=== PATIENT | female | born 1955 | race Caucasian/White ===

== ENCOUNTER 2017-12-06 05:58 | Day surgery (SDC) | payer OTHER ==
[2017-12-05 11:40] VITALS: BMI 33.7
[2017-12-06] MEDS ORDERED: Midazolam HCl 2 mg/2 ml Vial ONE ×2 (06:31→06:58)
[2017-12-06] MEDS ORDERED: Fentanyl 100 MCG/2 ML VIAL ONE ×2 (06:31→09:03)
[2017-12-06] MEDS ORDERED: Bupivacaine/Epinephrine 0.25% 30 ML VIAL ONE ×2 (06:42→09:07)
[2017-12-06] MEDS ORDERED: CEFAZOLIN/Water 2 GM/20 ML SYRINGE ONE (06:57)
[2017-12-06] MEDS ORDERED: Ketorolac Tromethamine 30 MG/ML VIAL ONE (06:58)
[2017-12-06 07:11] LABS: Hemoglobin 14.1 g/dL (12.0-16.0); Mean Corpuscular HGB CONC 33.8 g/dL (32.0-36.0); Mean Corpuscular Hemoglobin 31.5 pg (27.0-31.0); Mean Corpuscular Volume 93.2 fl (81.0-99.0); Platelet Count 177 thou/uL (130-400); RBC Distribution Width 13.1 % (11.5-14.5); Red Blood Cell (RBC) Count 4.49 mill/uL (4.20-5.40); White Blood Cell (WBC) Count 7.1 thou/uL (4.8-10.8)
[2017-12-06 07:31] LABS: ALT (SGPT) 62 U/L (8-55); AST (SGOT) 29 U/L (5-34); Albumin 4.6 g/dL (3.5-5.0); Alkaline Phosphatase 264 U/L (40-150); Anion Gap 14 mmol/L (10-20); BUN (Urea Nitrogen) 11 mg/dL (9.8-20.1); Bilirubin, Total 0.7 mg/dL (0.2-1.2); Calc. Creatinine Clearance 123 mL/min (70-130); Calcium 9.9 mg/dL (7.8-10.44); Carbon Dioxide 24 mmol/L (22-29); Chloride 101 mmol/L (98-107); Estimated GFR-MDRD 81; Globulin 2.9 g/dL (2.4-3.5); Glucose 95 mg/dL (70-105); Potassium 3.7 mmol/L (3.5-5.1); Protein, Total 7.5 g/dL (6.0-8.3); Sodium 135 mmol/L (136-145)
[2017-12-06] MEDS ORDERED: Iothalamate Meglumine 60% 50 ML VIAL FS ONE (08:05)
[2017-12-06 08:44] LABS: Band 3 % (5-11); Eosinophils 1 % (0-10); Lymphocytes 48 % (21-51); MDiff Complete? YES; Monocytes 8 % (0-10); Neutrophil 38 % (42-75); PLT Morphology Comment Appears Adequate; Reactive Lymphocytes 2 % (0-10)
[2017-12-06] MEDS ORDERED: Non-Formulary Medication 1 EACH PO PRN (09:54)
[2017-12-06] MEDS ORDERED: Promethazine HCl 25 MG/ML VIAL IM/IV PRN (09:54)
[2017-12-06] MEDS ORDERED: Ondansetron HCl/PF 4 MG/2 ML Vial IVP PRN (09:54)
--- NOTE | 2017-12-06 10:03 | RAD ---
CHOLANGIOGRAM IN SURGERY: Date: 12/06/17 HISTORY: Cholecystectomy. COMPARISON: None. FINDINGS: There is dilatation of the common bile duct. There is quick contrast in the duodenum. No distal commo n bile duct stone is appreciated. IMPRESSION: Dilatation of the common duct without a distal filling defect. POS: ANGELA
--- NOTE | 2017-12-06 12:14 | OP ---
DATE OF PROCEDURE: 12/06/2017 PREOPERATIVE DIAGNOSIS: Symptomatic cholelithiasis. POSTOPERATIVE DIAGNOSES: Symptomatic cholelithiasis with dilated cystic duct and common bile duct. PROCEDURE PERFORMED: Laparoscopic cholecystectomy with intraoperative cholangiogram. SURGEON: Porter Aguero M.D. ANESTHESIA: General endotracheal. INDICATIONS: The patient is a 62-year-old white female. She presents with symptoms referable to gal lbladder ultrasound proven cholelithiasis. Preoperative laboratory studies reveal an elevated alkali ne phosphatase level otherwise normal bilirubin and transaminases. I recommend cholangiogram. DESCRIPTION OF OPERATION: Informed consent was obtained. The patient taken to the operating room [facility] general endotracheal anesthesia was obtained with the patient in supine position. Abdomen was pr epped with ChloraPrep, draped in sterile fashion. Local anesthetic was infiltrated. An 11 mm infrau mbilical incision was created through which a Veress needle was passed into the peritoneal cavity and pneumoperitoneum established using carbon dioxide up to a pressure of 15 mmHg. An 11 mm trocar was passed through this same incision. Laparoscopic camera was passed this port. Under direct vision, I placed three additional 5 mm right upper quadrant ports. Attention was turned to the gallbladder. This was grasped and retracted in cephalad direction. There were some fatty adhesions to the gallbla dder. These were taken down using careful electrocautery. Base appendix was identified, grasped, an d retracted inferiorly. Careful dissection was carried out the apex of the gallbladder to identify t he cystic duct and cystic artery. The artery was quickly divided between clips leaving two on the si de to remain within the abdomen. The duct was dissected circumferentially and noted to be markedly d ilated. The duct was clipped proximally and a ductotomy was created through which a cholangiogram wa s performed. This revealed essentially normal ductal anatomy except that the cystic duct and the com mon duct were both quite dilated. There was easy quick emptying into the duodenum. There was no rosetta dence of filling defects in any of the ductal systems. The duct was removed and the distal aspect of the duct was clipped and a PDS Endoloop was placed as w ell due to the dilatation. The gallbladder was then dissected out of the gallbladder fossa using vilma ctrocautery and removed through the umbilical port site. Fascia was closed at the umbilicus with 0 V icryl suture using a GraNee needle. Right upper quadrant was thoroughly irrigated. All irrigant was aspirated. All ports and instruments removed under direct vision. Pneumoperitoneum was carefully e vacuated. Quarter percent Marcaine with epinephrine was infiltrated in each port site and skin edges approximated with 4-0 Monocryl subcuticular suture. Dermabond was placed externally. There were no complications. The patient tolerated the procedure well and was taken to recovery in stable conditi on.
[2017-12-06] MEDS ORDERED: Ondansetron HCl/PF 4 MG/2 ML Vial ONE (13:49)
[2017-12-06] MEDS ORDERED: Lidocaine 1% PF 5 ML VIAL ONE (13:49)
[2017-12-06] MEDS ORDERED: ePHEDrine/0.9% NaCl/PF SYRINGE 50 mg/10 ml ONE (13:49)
[2017-12-06] MEDS ORDERED: PROPOFOL 200 MG/20 ML VIAL ONE (13:49)
[2017-12-06] MEDS ORDERED: Glycopyrrolate 0.2 MG/ML 5 ML SYRINGE ONE (13:49)
[2017-12-06] MEDS ORDERED: Dexamethasone 20 MG/5 ML VIAL ONE (13:49)
--- NOTE | 2017-12-19 22:45 | EKG ---
Test Reason : PREOP Blood Pressure : / mmHG Vent. Rate : 068 BPM Atrial Rate : 068 BPM P-R Int : 178 ms QRS Dur : 102 ms QT Int : 408 ms P-R-T Axes : 064 -44 037 degrees QTc Int : 433 ms Normal sinus rhythm Left axis deviation Abnormal ECG When compared with ECG of 25-FEB-2015 09:37, Nonspecific T wave abnormality has replaced inverted T waves in Inferior leads T wave inversion no longer evident in Anterior leads Confirmed by Ghada JETER ([id number]) on 12/19/2017 10:45:03 PM Referred By: LUISA Confirmed By:Ghada JETER
== END 2017-12-06 12:10 | disposition home or self-care (01) ==
LOC: SDC 05:58
PROVIDERS: ATTEND Specialist
PROC: BF141ZZ Fluoroscopy of Gallbladder, Bile Ducts and Pancreatic Ducts using Low Osmolar Contrast (ICD-10-PCS; principal; 2017-12-06)
PROC: 0FT44ZZ Resection of Gallbladder, Percutaneous Endoscopic Approach (ICD-10-PCS; principal; 2017-12-06)
DX: K80.10 Calculus of gallbladder with chronic cholecystitis without obstruction (principal); I10 Essential (primary) hypertension; R56.9 Unspecified convulsions; Z88.2 Allergy status to sulfonamides; Z88.8 Allergy status to other drugs, medicaments and biological substances; Z91.048 Other nonmedicinal substance allergy status; Z90.49 Acquired absence of other specified parts of digestive tract
CPT/HCPCS: 47532; 80053; 85025; 88304; 93005; 93010; 96374; J0131; J1100; J1885; J2001; J2250; J2405; J2704; J3010; Q9961

== ENCOUNTER 2018-01-02 10:25 | Outpatient (CLI) | payer OTHER | END 2018-01-02 10:26 | disposition home or self-care (01) | LOC: BICMAMMO 10:25 | PROVIDERS: ATTEND Obstetrics & Gynecology | DX: Z12.31 Encounter for screening mammogram for malignant neoplasm of breast (principal); Z80.3 Family history of malignant neoplasm of breast | CPT/HCPCS: 77063; 77067 ==

== ENCOUNTER 2019-09-01 22:18 | Emergency (ER) | payer OTHER ==
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
[2019-09-01 22:50] LABS: #Basophils 0.1 thou/uL (0.0-0.2); #Eosinphils 0.1 thou/uL (0.0-0.7); #Lymphocytes 3.1 thou/uL (1.20-3.40); #Monocytes 0.9 thou/uL (0.11-0.59); #Neutrophils 4.5 thou/uL (1.40-6.50); %Basophils 1.1 % (0.0-1.0); %Monocytes 10.2 % (0.0-10.0); %Neutrophils 51.8 % (42.0-75.0); Hemoglobin 14.3 g/dL (12.0-16.0); Mean Corpuscular HGB CONC 34.5 g/dL (32.0-36.0); Mean Corpuscular Hemoglobin 32.4 pg (27.0-31.0); Mean Corpuscular Volume 93.8 fL (78.0-98.0); Mean Platelet Volume 7.9 fL (7.4-10.4); Platelet Count 210 thou/uL (130-400); RBC Distribution Width 12.3 % (11.5-14.5); White Blood Cell (WBC) Count 8.7 thou/uL (4.8-10.8)
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
[2019-09-01 23:02] LABS: ALT (SGPT) 12 U/L (8-55); AST (SGOT) 16 U/L (5-34); Albumin 4.5 g/dL (3.4-4.8); Alkaline Phosphatase 59 U/L (40-110); Anion Gap 13 mmol/L (10-20); BUN (Urea Nitrogen) 18 mg/dL (9.8-20.1); Bilirubin, Total 0.4 mg/dL (0.2-1.2); Calc. Creatinine Clearance 0 mL/min (70-130); Calcium 10.1 mg/dL (7.8-10.44); Carbon Dioxide 27 mmol/L (23-31); Chloride 106 mmol/L (98-107); Estimated GFR-MDRD 76; Globulin 2.8 g/dL (2.4-3.5); Glucose 104 mg/dL (80-115); Protein, Total 7.3 g/dL (6.0-8.3); Sodium 142 mmol/L (136-145)
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
== END 2019-09-02 01:01 | disposition home or self-care (01) ==
LOC: ERS 22:18
DX: M54.2 Cervicalgia (principal); I10 Essential (primary) hypertension; V40.5XXA Car driver injured in collision with pedestrian or animal in traffic accident, initial encounter
CPT/HCPCS: 36415; 70450; 71045; 71260; 72125; 74177; 80053; 83605; 85025; 93005; 96360

== ENCOUNTER 2020-06-11 06:35 | Inpatient (IN) | payer OTHER ==
[2020-06-11] MEDS ORDERED: Ondansetron PF 4 MG/2 ML Vial ONE (07:00)
[2020-06-11 07:19] LABS: #Basophils 0.1 thou/uL (0.0-0.2); #Lymphocytes 1.9 thou/uL (1.20-3.40); #Monocytes 0.9 thou/uL (0.11-0.59); #Neutrophils 7.2 thou/uL (1.40-6.50); %Basophils 0.6 % (0.0-1.0); %Eosinophils 0.4 % (0.0-10.0); %Lymphocytes 18.6 % (21.0-51.0); %Monocytes 9.2 % (0.0-10.0); %Neutrophils 71.2 % (42.0-75.0); Hemoglobin 11.5 g/dL (12.0-16.0); Mean Corpuscular HGB CONC 34.2 g/dL (32.0-36.0); Mean Corpuscular Hemoglobin 30.8 pg (27.0-31.0); Mean Corpuscular Volume 90.2 fL (78.0-98.0); Mean Platelet Volume 7.6 fL (7.4-10.4); Platelet Count 300 thou/uL (130-400); RBC Distribution Width 12.9 % (11.5-14.5); Red Blood Cell (RBC) Count 3.74 mill/uL (4.20-5.40); White Blood Cell (WBC) Count 10.1 thou/uL (4.8-10.8)
[2020-06-11 07:42] LABS: ALT (SGPT) 8 U/L (8-55); AST (SGOT) 12 U/L (5-34); Albumin 3.7 g/dL (3.4-4.8); Alkaline Phosphatase 58 U/L (40-110); Anion Gap 14 mmol/L (10-20); BUN (Urea Nitrogen) 13 mg/dL (9.8-20.1); Bilirubin, Total 0.5 mg/dL (0.2-1.2); Calc. Creatinine Clearance 0 mL/min (70-130); Calcium 9.1 mg/dL (7.8-10.44); Carbon Dioxide 25 mmol/L (23-31); Chloride 82 mmol/L (98-107); Estimated GFR-MDRD Greater than 90; Globulin 2.3 g/dL (2.4-3.5); Glucose 117 mg/dL (80-115)
[2020-06-11 07:49] LABS: Sodium 117 mmol/L (136-145)
[2020-06-11 08:03] LABS: CKMB 2.6 ng/mL (0-6.6)
[2020-06-11 09:14] LABS: Bilirubin Negative (Negative); Blood, Urine Negative (Negative); Clarity Clear (Clear); Glucose, Urine (Dipstick) Normal (Negative); Ketone, Urine 40 mg/dL (Negative); Leukocyte Negative Leu/uL (Negative); Nitrite Negative (Negative); Protein, Urine (Dipstick) Negative (Neg-Trace); Specific Gravity, Urine 1.007 (1.002-1.036); Urobilinogen Normal mg/dL (Less than 2)
[2020-06-11] MEDS ORDERED: Acetaminophen 325 MG TAB PO PRN (10:30)
[2020-06-11 10:40] VITALS: BMI 28.8
[2020-06-11 11:17] LABS: Anion Gap 12 mmol/L (10-20); BUN (Urea Nitrogen) 10 mg/dL (9.8-20.1); Calc. Creatinine Clearance 129 mL/min (70-130); Carbon Dioxide 28 mmol/L (23-31); Chloride 87 mmol/L (98-107); Estimated GFR-MDRD Greater than 90; Glucose 92 mg/dL (80-115); Potassium 4.1 mmol/L (3.5-5.1); Sodium 123 mmol/L (136-145)
[2020-06-11 11:23] LABS: Troponin I 0.016 ng/mL (< 0.028)
[2020-06-11] MEDS ORDERED: Ondansetron PF 4 MG/2 ML Vial IVP PRN (12:13)
--- NOTE | 2020-06-11 12:37 | HP ---
PRIMARY CARE PROVIDER: Triston Etienne MD CHIEF COMPLAINT: Generalized weakness. HISTORY OF PRESENT ILLNESS: Ms. Bird is a pleasant 64-year-old lady who was seen at [facility] on 06/11/2020. 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 She was prescribed p.r.n. Rye at that time. She reports that she took Rye yesterday afternoon with food as well as yesterday evening with food. She did not have any side effects. She woke up around 1:00 a.m. today and took some Rye without food. She started having vomiting. She reports vomiting multiple times and denies any blood in the vomitus. She fevers. She reports taking another dose of Rye this morning and continued to have vomiting. She therefore presented to the emergency room. She reports generalized weakness. She denies any chest pain. She denies any abdominal pain. She denies any diarrhea. In the emergency room, she was found to be hyponatremic and was referred to Hospitalist Service for admission. REVIEW OF SYSTEMS: All systems were reviewed and found to be negative except for the pertinent positives mentioned above. PAST MEDICAL HISTORY: 1. Hypertension. 2. Seizures. SURGICAL HISTORY: 1. Cholecystectomy. 2. Appendectomy. 3. Tubal ligation. 4. Neck cyst removal. 5. Mandibular surgery. SOCIAL HISTORY: The patient denies tobacco use, alcohol use, or recreational drug use. FAMILY HISTORY: Breast cancer in her mother and prostate cancer in her father. ALLERGIES: ADHESIVE, PHENYTOIN, AND SULFA. CURRENT MEDICATIONS: 1. Divalproex 500 mg 3 times a day. 2. Synthroid 125 mcg daily. 3. Doxycycline 100 mg daily. 4. Irbesartan 75 mg daily. 5. Rye p.r.n. PHYSICAL EXAMINATION: GENERAL: On examination, Ms. Bird is awake and alert, not in acute distress. VITAL SIGNS: Blood pressure is 130/76, pulse 76, respiratory rate 18, and oxygen saturation 99% on room air. She is afebrile. EYES: No scleral icterus. No conjunctival pallor. ENT: Moist mucosal membranes. No oropharyngeal erythema or exudates. NECK: Supple, nontender. Trachea is midline. RESPIRATORY: Accessory muscles of breathing are not active. Chest wall movements are symmetric bilaterally. Lungs are clear to auscultation without wheeze, rhonchi, or crepitations. CARDIOVASCULAR: S1 and S2 are heard, regular. Peripheral pulses palpable. ABDOMEN: Soft, nontender. Bowel sounds are heard. NEUROLOGIC: Cranial nerves 2 through 12 are intact. Deep tendon reflexes 2+. She has tremor in her hands, more pronounced on the left. MUSCULOSKELETAL: Power is 5/5 in all 4 extremities. SKIN: No rashes. LYMPHATIC: No cervical lymphadenopathy. PSYCHIATRIC: Normal mood, normal affect. The patient is oriented to person, place, and time. LABORATORY DATA: Ms. Bird's labs and investigations were reviewed. Electrocardiogram showed normal sinus rhythm, no ST changes to suggest an acute coronary syndrome. She has normal white count, normocytic anemia with hemoglobin 11.5, normal platelet count. Decreased sodium of 117, potassium 4.0, normal anion gap, and creatinine 0.61. Unremarkable LFTs. Troponin-I is in the indeterminate range at 0.029. ASSESSMENT AND PLAN: Ms. Bird is a pleasant 64-year-old lady who was seen at [facility] on 06/11/2020. Her problem list includes: 1. Hyponatremia: Etiology is unclear, this is in the context of recurrent vomiting that started overnight. I will check her serum osmolality. I will consult Nephrology Service for opinion and help with management. 2. Nausea and vomiting: Most likely secondary to medication use. I will start her on p.r.n. Zofran. 3. Elevated troponin: The patient denies any chest pain. Troponin is mildly elevated and in the indeterminate range, likely due to demand ischemia. We will recheck troponin. We will monitor on telemetry for now. 4. Hypertension: Resume irbesartan. Monitor vital signs and titrate antihypertensives as needed. 5. Hypothyroidism: Resume Synthroid. Many thanks for allowing me to participate in your patient's care. Please feel free to contact me with any questions or concerns. ESTIMATED LENGTH OF STAY IN THE HOSPITAL: Greater than 2 midnights. LEVEL OF RISK: Moderate. LEVEL OF COMPLEXITY: Moderate. Job ID: [id number]
--- NOTE | 2020-06-11 12:57 | CON ---
DATE OF CONSULTATION: 06/11/2020 SERVICE: Nephrology. REASON FOR CONSULTATION: Hyponatremia. REQUESTING PHYSICIAN: Kyle Zapata MD CHIEF COMPLAINT: Nausea, vomiting, and weakness. HISTORY OF PRESENT ILLNESS: A 64-year-old female with known history of hypertension, who recently had mandibular debridement for osteomyelitis 3 days ago, presenting to the hospital due to intractable nausea and vomiting associated with generalized weakness. The patient had a mandibular debridement for osteomyelitis on 06/08/2020. She was put on a soft liquid diet and was taking mostly fluids in the last couple of days due to poor appetite. She also reported decreased oral intake due to jaw pain several days prior to surgery. She was taking Advil, but with worsening of pain, she started taking hydrocodone and acetaminophen, following which she developed nausea and vomiting. She reportedly had about 5 episodes of emesis, which was nonbilious and nonbloody. There was no associated melena, hematochezia, or hematemesis. She, however, admitted to generalized weakness as well as dizziness. There was a questionable episode of some slight confusion and some disorientation, which has resolved after treatment in the emergency room. There was no associated cough, fever, chills, rigors, hematemesis, hematuria, dysuria, abdominal pain, headache, or focal weakness. Review of medical records showed the patient had an episode of hyponatremia in 2014, which was then thought to be related to hydrochlorothiazide and was subsequently taking off hydrochlorothiazide. Medical records showed normal sodium of 142 in 08/2019, but the patient also had a sodium of 131 on 05/20/2020. She also had thyroidectomy in 02/2020 for a thyroid nodule. She reported that she was taking 150 mcg of Synthroid, but that was recently decreased to 125 a few days ago. In the emergency room, the patient reportedly had soft blood pressure initially, but subsequent blood pressures were elevated above 140s. The patient was thought to have dehydration on presentation. Initial labs showed sodium of 117 with stable creatinine, hence was treated with a liter of normal saline, following which the patient reports improvement in general condition. Nephrology was consulted due to hyponatremia. PAST MEDICAL HISTORY: 1. Seizure disorder with remote episodes of seizure activity. 2. Hypertension. 3. Thyroid nodule. PAST SURGICAL HISTORY: 1. Recent mandibular debridement. 2. Thyroidectomy. 3. Cholecystectomy. 4. Tubal ligation. FAMILY HISTORY: Reviewed, but noncontributory. SOCIAL HISTORY: The patient lives with spouse. Denied alcohol, recreational drug, or smoking history. ALLERGIES: 1. ADHESIVE TAPE. 2. DILANTIN. 3. PHENYTOIN. 4. SULFA. CURRENT HOME MEDICATIONS: 1. Divalproex 500 mg t.i.d. 2. Synthroid 125 mcg p.o. daily. 3. Doxycycline 100 mg p.o. b.i.d. 4. Irbesartan 75 mg daily. 5. Hydrocodone and acetaminophen 7.5 mg/325 every 6 hours p.r.n. 6. Advil p.r.n. REVIEW OF SYSTEMS: Twelve-point review of system performed was negative other than pertinent positives and negatives included in the history of present illness. PHYSICAL EXAMINATION: VITAL SIGNS: Current vitals showed temperature 97.9, pulse 81, respiratory rate 14, SpO2 of 100 on room air, and blood pressure is 131/62. GENERAL: Female, in no obvious distress, fatigued. Afebrile and anicteric. HEENT: Normocephalic and atraumatic. Oral mucosa is moist. NECK: Supple with no obvious JVD. CARDIOVASCULAR: Regular rhythm and rate with normal heart sounds 1 and 2. RESPIRATORY: Good air entry bilaterally with a few transmitted breath sounds, but no obvious crackle or rhonchi or use of accessory muscles. GI: Full, soft, nontender, and nondistended with normal bowel sounds. EXTREMITIES: Grossly normal looking and atraumatic with no obvious edema or erythema. The patient moves all extremities. Distal pulses are palpable. AWNING ASSEMBLER: Conscious and alert, oriented x3 with appropriate mental status. Cranial nerves 2 through 12 are grossly intact. The patient moves all extremities. PSYCHIATRIC: Normal affect. DIAGNOSTIC DATA: CBC showed WBC count of 10.1, hemoglobin of 11.5, MCV of 90.2, and platelet of 300. Chemistry showed sodium 117, potassium 4.0, chloride 82, CO2 of 25, BUN 13, creatinine 0.61, glucose 117, and calcium 9.1. Total bilirubin 0.5, AST 12, ALT 8, alkaline phosphatase 50, total protein 6.0, and albumin 3.7. Initial cardiac markers showed CK-MB 2.6 and troponin 0.029. Review of medical records showed the patient had normal sodium of 142 in 08/2019. She also had an episode of hyponatremia with sodium of 120 in 02/2015, which improved to 135 on 02/27/2015. ASSESSMENT: 1. Hyponatremia: This is severe with sodium of 117. The patient is currently neurologically stable. This seems to be multifactorial from both volume depletion with correction with hypotonic solution as well as the baseline syndrome of inappropriate antidiuretic hormone with acute excerbation due to recent surgery and nausea. Intractable nausea is avid stimulator of ADH secretion. The patient did receive normal saline 1 L during the ER visit. 2. Presumed syndrome of inappropriate antidiuretic hormone.Most likely due to Depakorte therapy 3. Poor solute intake. 4. Recent mandibular surgery, on antibiotics. 5. Thyroid surgery for thyroid nodule. 6. Hypertension, on treatment. PLAN: 1. We will get stat BMP to ascertain current level of sodium given a prior treatment with 1 L normal saline in the emergency room. 2. We will also get a urinalysis as well as urine and plasma osmolality. 3. We will also get TSH to ascertain state of thyroid replacement. 4. We will avoid aggressive correction of sodium in this patient as she is asymptomatic. 5. We will encourage liberal solute intake as much as possible. Serum osmolality was 248 while urine osmolality was 231, consistent with syndrome of inappropriate ADH secretion. Urine sodium also was noted to be high at 51. Repeat BMP showed sodium of 123. Improvement with sodium chloride is consistent with some degree of volume depletion. We will start fluid restriction. We will continue liberal solute intake. We will also follow BMP serially to monitor correction of the sodium. Many thanks for involving us in the care of this patient. We will follow along with you. Job ID: [id number] [facility]
[2020-06-11 14:12] LABS: Troponin I Less than 0.010 ng/mL (< 0.028)
[2020-06-11 18:51] LABS: Anion Gap 14 mmol/L (10-20); BUN (Urea Nitrogen) 9 mg/dL (9.8-20.1); Calc. Creatinine Clearance 121 mL/min (70-130); Calcium 9.4 mg/dL (7.8-10.44); Carbon Dioxide 26 mmol/L (23-31); Chloride 95 mmol/L (98-107); Estimated GFR-MDRD Greater than 90; Glucose 106 mg/dL (80-115); Sodium 131 mmol/L (136-145)
[2020-06-11 19:49] LABS: SARS-CoV-2 MS2 Positive; SARS-CoV-2 N Gene Negative; SARS-CoV-2 S Gene Negative; SARS-CoV-2 by NAA Not Detected (NotDetected); SARS-CoV-2 orf1ab Negative
[2020-06-11] MEDS: Doxycycline 100 MG CAP PO SCH (21:35)
[2020-06-11] MEDS: Divalproex Sodium DR 500 MG TAB PO SCH ×2 (21:36→22:02)
[2020-06-11] MEDS ORDERED: Divalproex Sodium 125 mg Sprinkle Capsule PO SCH (22:00)
[2020-06-11] MEDS: Dextrose 5% in Water 1,000 ML IV SCH (22:15)
[2020-06-11] MEDS: Acetaminophen 325 MG TAB PO PRN (22:24)
[2020-06-12] MEDS: Acetaminophen 325 MG TAB PO PRN ×4 (02:20→23:02)
[2020-06-12 04:41] LABS: #Basophils 0.1 thou/uL (0.0-0.2); #Eosinphils 0.1 thou/uL (0.0-0.7); #Lymphocytes 3.2 thou/uL (1.20-3.40); #Neutrophils 3.6 thou/uL (1.40-6.50); %Eosinophils 0.7 % (0.0-10.0); %Lymphocytes 40.7 % (21.0-51.0); %Neutrophils 45.6 % (42.0-75.0); Hemoglobin 11.1 g/dL (12.0-16.0); Mean Corpuscular HGB CONC 33.4 g/dL (32.0-36.0); Mean Corpuscular Hemoglobin 30.5 pg (27.0-31.0); Mean Corpuscular Volume 91.3 fL (78.0-98.0); Mean Platelet Volume 7.9 fL (7.4-10.4); Platelet Count 284 thou/uL (130-400); RBC Distribution Width 13.3 % (11.5-14.5); Red Blood Cell (RBC) Count 3.64 mill/uL (4.20-5.40); White Blood Cell (WBC) Count 7.9 thou/uL (4.8-10.8)
[2020-06-12 05:26] LABS: Anion Gap 11 mmol/L (10-20); BUN (Urea Nitrogen) 8 mg/dL (9.8-20.1); Calc. Creatinine Clearance 127 mL/min (70-130); Calcium 8.8 mg/dL (7.8-10.44); Carbon Dioxide 26 mmol/L (23-31); Chloride 96 mmol/L (98-107); Estimated GFR-MDRD Greater than 90; Glucose 100 mg/dL (80-115); Potassium 3.9 mmol/L (3.5-5.1); Sodium 129 mmol/L (136-145)
[2020-06-12] MEDS: Levothyroxine Sodium 125 MCG TAB PO SCH (05:51)
[2020-06-12] MEDS: Dextrose 5% in Water 1,000 ML IV SCH ×3 (08:37→17:29)
[2020-06-12] MEDS: Divalproex Sodium 125 mg Sprinkle Capsule PO SCH ×2 (08:38→20:18)
[2020-06-12] MEDS: Losartan 25 MG TAB PO SCH (08:38)
[2020-06-12] MEDS: Doxycycline 100 MG CAP PO SCH ×2 (08:38→20:19)
[2020-06-12] MEDS: Enoxaparin Sodium 40 MG/0.4 ML SYRINGE SC SCH (08:38)
[2020-06-12 10:24] LABS: Anion Gap 12 mmol/L (10-20); BUN (Urea Nitrogen) 6 mg/dL (9.8-20.1); Calc. Creatinine Clearance 125 mL/min (70-130); Calcium 8.8 mg/dL (7.8-10.44); Carbon Dioxide 27 mmol/L (23-31); Chloride 95 mmol/L (98-107); Estimated GFR-MDRD Greater than 90; Glucose 109 mg/dL (80-115); Potassium 3.6 mmol/L (3.5-5.1); Sodium 130 mmol/L (136-145)
--- NOTE | 2020-06-12 12:00 | PDOC.NEPPN ---
- Subjective Encounter Date: 06/12/20 Subjective: Seen in follow up for hyponatremia. Reports feeling better. Nausea and vomiting have subsided and patient is tolerating oral intake. No Fever. - Objective Vital Signs & Weight: Vital Signs (12 hours) Temp Pulse Resp BP Pulse Ox 06/12/20 08:00 100 06/12/20 07:20 98.0 F 72 16 131/61 100 06/12/20 04:00 97.8 F 75 18 125/60 98 06/12/20 00:00 78 18 118/56 L 98 Weight Weight 179 lb I&O: 06/11/20 06/12/20 06/13/20 06:59 06:59 06:59 Intake Total 1100 Balance 1100 Result Diagrams: 06/12/20 04:23 06/12/20 09:41 Nephrology ROS - Medication Medications: Active Medications Generic Name Dose Route Start Last Admin Trade Name Freq PRN Reason Stop Dose Admin Acetaminophen 650 mg 06/11/20 12:13 06/12/20 10:19 Acetaminophen 325 Mg Tab PO 650 mg Q4H PRN Administration Headache/Fever/Mild Pain (1-3) Divalproex Sodium 500 mg 06/12/20 09:00 06/12/20 08:38 Divalproex Sodium 125 Mg Sprinkle Capsule PO 500 mg BID ANDREW Administration Doxycycline Hyclate 100 mg 06/11/20 21:00 06/12/20 08:38 Doxycycline 100 Mg Cap PO 100 mg BID ANDREW Administration Enoxaparin Sodium 40 mg 06/12/20 09:00 06/12/20 08:38 Enoxaparin Sodium 40 Mg/0.4 Ml Syringe SC 40 mg 0900 ANDREW Administration Dextrose/Water 1,000 mls @ 100 mls/hr 06/11/20 21:15 06/12/20 08:37 D5w IV 1,000 mls .Q10H ANDREW Administration Levothyroxine Sodium 125 mcg 06/12/20 06:00 06/12/20 05:51 Levothyroxine Sodium 125 Mcg Tab PO 125 mcg 0600 ANDREW Administration Losartan Potassium 25 mg 06/12/20 09:00 06/12/20 08:38 Losartan 25 Mg Tab PO 25 mg DAILY ANDREW Administration - Exam General Appearance: awake alert Eye: anicteric sclera ENT: moist mucosa Neck: supple, symmetric, no JVD Respiratory: no wheezes, no rales, no ronchi, normal chest expansion Cardiovascular: RRR Gastrointestinal: soft, non-tender, non-distended, normal bowel sounds Extremities: no edema Neurological: CN's grossly intact PSYCH: A&O x 3 Nephrology Results - Labs Result Diagrams: 06/12/20 04:23 06/12/20 09:41 Lab results: WBC 7.9 thou/uL (4.8-10.8) 06/12/20 04:23 Hgb 11.1 g/dL (12.0-16.0) L 06/12/20 04:23 Hct 33.2 % (36.0-47.0) L 06/12/20 04:23 MCV 91.3 fL (78.0-98.0) 06/12/20 04:23 Plt Count 284 thou/uL (130-400) 06/12/20 04:23 Neutrophils % 45.6 % (42.0-75.0) 06/12/20 04:23 Sodium 130 mmol/L (136-145) L 06/12/20 09:41 Potassium 3.6 mmol/L (3.5-5.1) 06/12/20 09:41 Chloride 95 mmol/L (98-107) L 06/12/20 09:41 Carbon Dioxide 27 mmol/L (23-31) 06/12/20 09:41 BUN 6 mg/dL (9.8-20.1) L 06/12/20 09:41 Creatinine 0.60 mg/dL (0.6-1.1) 06/12/20 09:41 Glucose 109 mg/dL (80-115) 06/12/20 09:41 Lactic Acid 0.9 mmol/L (0.5-2.2) 06/11/20 07:39 Calcium 8.8 mg/dL (7.8-10.44) 06/12/20 09:41 Total Bilirubin 0.5 mg/dL (0.2-1.2) 06/11/20 07:06 AST 12 U/L (5-34) 06/11/20 07:06 ALT 8 U/L (8-55) 06/11/20 07:06 Alkaline Phosphatase 58 U/L (40-110) 06/11/20 07:06 CK-MB (CK-2) 2.6 ng/mL (0-6.6) 06/11/20 07:06 Troponin I Less than 0.010 ng/mL (< 0.028) 06/11/20 13:29 Serum Total Protein 6.0 g/dL (6.0-8.3) 06/11/20 07:06 Albumin 3.7 g/dL (3.4-4.8) 06/11/20 07:06 Urine Ketones 40 mg/dL (Negative) A 06/11/20 09:00 Urine Blood Negative (Negative) 06/11/20 09:00 Urine Nitrite Negative (Negative) 06/11/20 09:00 Ur Leukocyte Esterase Negative Ankita/uL (Negative) 06/11/20 09:00 Sodium 130 mmol/L (136-145) L 06/12/20 09:41 Potassium 3.6 mmol/L (3.5-5.1) 06/12/20 09:41 Chloride 95 mmol/L (98-107) L 06/12/20 09:41 Carbon Dioxide 27 mmol/L (23-31) 06/12/20 09:41 Anion Gap 12 mmol/L (-20) 06/12/20 09:41 BUN 6 mg/dL (9.8-20.1) L 06/12/20 09:41 Creatinine 0.60 mg/dL (0.6-1.1) 06/12/20 09:41 Glucose 109 mg/dL (80-115) 06/12/20 09:41 Calcium 8.8 mg/dL (7.8-10.44) 06/12/20 09:41 Albumin 3.7 g/dL (3.4-4.8) 06/11/20 07:06 Nephrology AP PN - Plan Hyponatremia: Multifactorial from both volume depletion with correction with hypotonic fluid superimposed on baseline syndrome of inappropriate antidiuretic hormone with acute excerbation due to recent surgery and nausea.Sodium level went up to 131 after normal saline and increased oral solute intake and resolution of nausea. This is rather too fast and dextrose infusion was started. Syndrome of inappropriate antidiuretic hormone.Most likely due to Depakorte therapy Recent mandibular surgery, on antibiotics. Thyroid surgery for thyroid nodule. Hypertension, on treatment. PLAN. Increase dextrose infusion rate. Dc fluid restriction. Oral intake as tolerated. Follow BMP.
--- NOTE | 2020-06-12 16:27 | PDOC.HOSPP ---
- Subjective Encounter Date: 06/12/20 Encounter Time: 10:30 Subjective: Patient seen for follow-up regarding hyponatremia. Reports feeling better. - Objective Vital Signs & Weight: Vital Signs (12 hours) Temp Pulse Resp BP Pulse Ox 06/12/20 12:05 98.4 F 19 109/55 L 98 06/12/20 08:00 100 06/12/20 07:20 98.0 F 72 16 131/61 100 Weight Admit Weight 179 lb Weight 179 lb I&O: 06/11/20 06/12/20 06/13/20 06:59 06:59 06:59 Intake Total 1100 Balance 1100 Result Diagrams: 06/12/20 04:23 06/12/20 09:41 Additional Labs: I reviewed patient's labs and MAR EKG Reviewed by me: Yes (Telemetry: Normal sinus rhythm) Hospitalist ROS - Review of Systems Cardiovascular: denies: chest pain, palpitations, orthopnea, paroxysmal noc. dyspnea, edema, light headedness Gastrointestinal: denies: nausea, vomiting, abdominal pain, diarrhea, constipation, melena, hematochezia - Medication Medications: Active Medications Generic Name Dose Route Start Last Admin Trade Name Freq PRN Reason Stop Dose Admin Acetaminophen 650 mg 06/11/20 12:13 06/12/20 10:19 Acetaminophen 325 Mg Tab PO 650 mg Q4H PRN Administration Headache/Fever/Mild Pain (1-3) Divalproex Sodium 500 mg 06/12/20 09:00 06/12/20 08:38 Divalproex Sodium 125 Mg Sprinkle Capsule PO 500 mg BID ANDREW Administration Doxycycline Hyclate 100 mg 06/11/20 21:00 06/12/20 08:38 Doxycycline 100 Mg Cap PO 100 mg BID ANDREW Administration Enoxaparin Sodium 40 mg 06/12/20 09:00 06/12/20 08:38 Enoxaparin Sodium 40 Mg/0.4 Ml Syringe SC 40 mg 0900 ANDREW Administration Dextrose/Water 1,000 mls @ 150 mls/hr 06/12/20 12:21 06/12/20 15:08 D5w IV 1,000 mls .Q6H40M ANDREW Administration Levothyroxine Sodium 125 mcg 06/12/20 06:00 06/12/20 05:51 Levothyroxine Sodium 125 Mcg Tab PO 125 mcg 0600 ANDREW Administration Losartan Potassium 25 mg 06/12/20 09:00 06/12/20 08:38 Losartan 25 Mg Tab PO 25 mg DAILY ANDREW Administration - Exam General Appearance: awake alert Eye: anicteric sclera ENT: moist mucosa Neck: supple Heart: RRR Respiratory: CTAB Gastrointestinal: soft, non-tender Extremities: no cyanosis Skin: no rashes Psychiatric: normal affect, normal behavior Hosp A/P (1) Hyponatremia Code(s): E87.1 - HYPO-OSMOLALITY AND HYPONATREMIA Status: Acute (2) Seizure disorder Code(s): G40.909 - EPILEPSY, UNSP, NOT INTRACTABLE, WITHOUT STATUS EPILEPTICUS Status: Chronic (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 Appreciate nephrology service input.
[2020-06-12 17:07] LABS: Anion Gap 14 mmol/L (10-20); BUN (Urea Nitrogen) 7 mg/dL (9.8-20.1); Calc. Creatinine Clearance 119 mL/min (70-130); Calcium 8.7 mg/dL (7.8-10.44); Carbon Dioxide 26 mmol/L (23-31); Chloride 96 mmol/L (98-107); Estimated GFR-MDRD Greater than 90; Glucose 78 mg/dL (80-115); Potassium 3.5 mmol/L (3.5-5.1); Sodium 132 mmol/L (136-145)
[2020-06-12 21:41] LABS: Anion Gap 12 mmol/L (10-20); BUN (Urea Nitrogen) 7 mg/dL (9.8-20.1); Calc. Creatinine Clearance 119 mL/min (70-130); Calcium 8.6 mg/dL (7.8-10.44); Carbon Dioxide 25 mmol/L (23-31); Chloride 97 mmol/L (98-107); Estimated GFR-MDRD Greater than 90; Glucose 108 mg/dL (80-115); Sodium 130 mmol/L (136-145)
[2020-06-13] MEDS: Dextrose 5% in Water 1,000 ML IV SCH (00:36)
[2020-06-13 04:16] LABS: #Basophils 0.1 thou/uL (0.0-0.2); #Eosinphils 0.1 thou/uL (0.0-0.7); #Lymphocytes 4.2 thou/uL (1.20-3.40); #Monocytes 0.9 thou/uL (0.11-0.59); #Neutrophils 3.6 thou/uL (1.40-6.50); %Basophils 1.6 % (0.0-1.0); %Eosinophils 1.6 % (0.0-10.0); %Lymphocytes 47.1 % (21.0-51.0); %Monocytes 9.8 % (0.0-10.0); %Neutrophils 39.9 % (42.0-75.0); Hemoglobin 10.8 g/dL (12.0-16.0); Mean Corpuscular HGB CONC 33.2 g/dL (32.0-36.0); Mean Corpuscular Hemoglobin 30.8 pg (27.0-31.0); Mean Corpuscular Volume 92.7 fL (78.0-98.0); Mean Platelet Volume 7.8 fL (7.4-10.4); Platelet Count 270 thou/uL (130-400); RBC Distribution Width 13.5 % (11.5-14.5)
[2020-06-13 04:34] LABS: Anion Gap 13 mmol/L (10-20); BUN (Urea Nitrogen) 5 mg/dL (9.8-20.1); Calc. Creatinine Clearance 134 mL/min (70-130); Calcium 8.4 mg/dL (7.8-10.44); Carbon Dioxide 22 mmol/L (23-31); Chloride 97 mmol/L (98-107); Estimated GFR-MDRD Greater than 90; Glucose 118 mg/dL (80-115); Potassium 4.1 mmol/L (3.5-5.1); Sodium 128 mmol/L (136-145)
[2020-06-13] MEDS: Acetaminophen 325 MG TAB PO PRN ×3 (04:43→14:27)
[2020-06-13] MEDS: Levothyroxine Sodium 125 MCG TAB PO SCH (04:43)
--- NOTE | 2020-06-13 08:18 | PDOC.NEPPN ---
- Subjective Encounter Date: 06/13/20 Encounter Time: 08:16 Subjective: Seen in follow up for hyponatemia. Feeling better. Mausea amnd vomiting have resolved. tolerating oral intake. - Objective Vital Signs & Weight: Vital Signs (12 hours) Temp Pulse Resp BP Pulse Ox 06/13/20 03:00 98.4 F 71 15 139/65 100 Weight Admit Weight 179 lb Weight 179 lb I&O: 06/12/20 06/13/20 06/14/20 06:59 06:59 06:59 Intake Total 1100 2600 Balance 1100 2600 Result Diagrams: 06/13/20 03:54 06/13/20 03:54 Nephrology ROS - Medication Medications: Active Medications Generic Name Dose Route Start Last Admin Trade Name Freq PRN Reason Stop Dose Admin Acetaminophen 650 mg 06/11/20 12:13 06/13/20 04:43 Acetaminophen 325 Mg Tab PO 650 mg Q4H PRN Administration Headache/Fever/Mild Pain (1-3) Divalproex Sodium 500 mg 06/12/20 09:00 06/12/20 20:18 Divalproex Sodium 125 Mg Sprinkle Capsule PO 500 mg BID ANDREW Administration Doxycycline Hyclate 100 mg 06/11/20 21:00 06/12/20 20:19 Doxycycline 100 Mg Cap PO 100 mg BID ANDREW Administration Enoxaparin Sodium 40 mg 06/12/20 09:00 06/12/20 08:38 Enoxaparin Sodium 40 Mg/0.4 Ml Syringe SC 40 mg 0900 ANDREW Administration Levothyroxine Sodium 125 mcg 06/12/20 06:00 06/13/20 04:43 Levothyroxine Sodium 125 Mcg Tab PO 125 mcg 0600 ANDREW Administration Losartan Potassium 25 mg 06/12/20 09:00 06/12/20 08:38 Losartan 25 Mg Tab PO 25 mg DAILY ANDREW Administration - Exam General Appearance: awake alert Eye: anicteric sclera ENT: normocephalic atraumatic, moist mucosa Neck: supple, symmetric, no JVD Respiratory: no wheezes, no rales, no ronchi, normal chest expansion, no tachypnea Cardiovascular: RRR Gastrointestinal: soft, non-tender, non-distended, normal bowel sounds Extremities: no edema Neurological: CN's grossly intact PSYCH: A&O x 3 Nephrology Results - Labs Result Diagrams: 06/13/20 03:54 06/13/20 03:54 Lab results: WBC 9.0 thou/uL (4.8-10.8) 06/13/20 03:54 Hgb 10.8 g/dL (12.0-16.0) L 06/13/20 03:54 Hct 32.4 % (36.0-47.0) L 06/13/20 03:54 MCV 92.7 fL (78.0-98.0) 06/13/20 03:54 Plt Count 270 thou/uL (130-400) 06/13/20 03:54 Neutrophils % 39.9 % (42.0-75.0) L 06/13/20 03:54 Sodium 128 mmol/L (136-145) L 06/13/20 03:54 Potassium 4.1 mmol/L (3.5-5.1) 06/13/20 03:54 Chloride 97 mmol/L (98-107) L 06/13/20 03:54 Carbon Dioxide 22 mmol/L (23-31) L 06/13/20 03:54 BUN 5 mg/dL (9.8-20.1) L 06/13/20 03:54 Creatinine 0.56 mg/dL (0.6-1.1) L 06/13/20 03:54 Glucose 118 mg/dL (80-115) H 06/13/20 03:54 Lactic Acid 0.9 mmol/L (0.5-2.2) 06/11/20 07:39 Calcium 8.4 mg/dL (7.8-10.44) 06/13/20 03:54 Total Bilirubin 0.5 mg/dL (0.2-1.2) 06/11/20 07:06 AST 12 U/L (5-34) 06/11/20 07:06 ALT 8 U/L (8-55) 06/11/20 07:06 Alkaline Phosphatase 58 U/L (40-110) 06/11/20 07:06 CK-MB (CK-2) 2.6 ng/mL (0-6.6) 06/11/20 07:06 Troponin I Less than 0.010 ng/mL (< 0.028) 06/11/20 13:29 B-Natriuretic Peptide 20.9 pg/mL (0-100) 06/12/20 23:22 Serum Total Protein 6.0 g/dL (6.0-8.3) 06/11/20 07:06 Albumin 3.7 g/dL (3.4-4.8) 06/11/20 07:06 Urine Ketones 40 mg/dL (Negative) A 06/11/20 09:00 Urine Blood Negative (Negative) 06/11/20 09:00 Urine Nitrite Negative (Negative) 06/11/20 09:00 Ur Leukocyte Esterase Negative Ankita/uL (Negative) 06/11/20 09:00 Sodium 128 mmol/L (136-145) L 06/13/20 03:54 Potassium 4.1 mmol/L (3.5-5.1) 06/13/20 03:54 Chloride 97 mmol/L (98-107) L 06/13/20 03:54 Carbon Dioxide 22 mmol/L (23-31) L 06/13/20 03:54 Anion Gap 13 mmol/L (-20) 06/13/20 03:54 BUN 5 mg/dL (9.8-20.1) L 06/13/20 03:54 Creatinine 0.56 mg/dL (0.6-1.1) L 06/13/20 03:54 Glucose 118 mg/dL (80-115) H 06/13/20 03:54 Calcium 8.4 mg/dL (7.8-10.44) 06/13/20 03:54 Albumin 3.7 g/dL (3.4-4.8) 06/11/20 07:06 Nephrology AP PN - Plan Hyponatremia: Multifactorial from both volume depletion with correction with hypotonic fluid superimposed on baseline syndrome of inappropriate antidiuretic hormone with acute excerbation due to recent surgery and nausea.Sodium level went up to 131 after normal saline and increased oral solute intake and resolution of nausea. Sodium is down to 128 with D5w. No neurological change. Syndrome of inappropriate antidiuretic hormone.Most likely due to Depakorte therapy Recent mandibular surgery, on antibiotics. Thyroid surgery for thyroid nodule. Hypertension, on treatment. PLAN. DC D5W Oral intake as tolerated. [place] solute intake advised Repeat BMP. can be discharged from nephrology point of view. Follow up in the office on 06/22/2020 at 10.30 am with repeat lab
[2020-06-13] MEDS: Enoxaparin Sodium 40 MG/0.4 ML SYRINGE SC SCH (09:31)
[2020-06-13] MEDS: Divalproex Sodium 125 mg Sprinkle Capsule PO SCH (09:32)
[2020-06-13] MEDS: Doxycycline 100 MG CAP PO SCH (09:32)
[2020-06-13] MEDS: Losartan 25 MG TAB PO SCH (09:32)
[2020-06-13 09:49] VITALS: BP 147/66; TEMP 98.1
[2020-06-13 11:34] LABS: Anion Gap 14 mmol/L (10-20); BUN (Urea Nitrogen) 4 mg/dL (9.8-20.1); Calc. Creatinine Clearance 112 mL/min (70-130); Calcium 9.4 mg/dL (7.8-10.44); Carbon Dioxide 26 mmol/L (23-31); Chloride 96 mmol/L (98-107); Estimated GFR-MDRD 89; Glucose 97 mg/dL (80-115); Potassium 4.1 mmol/L (3.5-5.1); Sodium 132 mmol/L (136-145)
--- NOTE | 2020-06-14 03:25 | DIS ---
DATE OF ADMISSION: 06/11/2020 DATE OF DISCHARGE: 06/13/2020 PRIMARY CARE PROVIDER: Triston Etienne MD DISCHARGE DIAGNOSES: 1. Hyponatremia. 2. Nausea and vomiting. 3. [id number] myocardial infarction type 2. CONDITION OF THE PATIENT ON THE DAY OF DISCHARGE: Stable. I assessed Ms. Bird on the day of discharge. She denies any chest pain or shortness of breath. Vital signs are stable. S1 and S2 are heard, regular. Lungs are clear to auscultation bilaterally. CONSULTATIONS DURING THIS HOSPITALIZATION: Nephrology, Dr. Islas. HOSPITAL COURSE: Ms. Bird is a pleasant 64-year-old lady, who was admitted to [facility] on June 11, 2020, for severe hyponatremia in the context of nausea and vomiting after taking [place] on empty stomach. Her sodium level at the time of admission was 117. She was seen by Nephrology Service. She was treated with intravenous fluids, with improvement in her sodium level. Sodium level on the day of discharge is 132. The patient also improved clinically in terms of nausea, vomiting, and generalized weakness. She is being discharged home in a stable condition. DIET: Regular. ACTIVITY: As tolerated. POST ACUTE CARE FOLLOWUP: With primary care provider in [address] Islas on June 22, 2020 at 10:30 a.m. DISCHARGE MEDICATIONS: No change was made to her pre-admission home medications. Many thanks for allowing me to participate in your patient's care. Please feel free to contact me with any questions or concerns. On the day of discharge, she has sodium 132, potassium 4.1, creatinine 0.67, white count 9000, hemoglobin 10.8, and platelet count 270,000. COVID test was negative during this hospitalization. Job ID: [id number]
== END 2020-06-13 17:59 | disposition home or self-care (01) | DRG 643 ==
LOC: ERS 06:35 → 2NO 10:32
PROVIDERS: ADMIT Internal Medicine; ATTEND Internal Medicine
DX: E22.2 Syndrome of inappropriate secretion of antidiuretic hormone (principal); I21.A1 Myocardial infarction type 2; Z20.828 Contact with and (suspected) exposure to other viral communicable diseases; I10 Essential (primary) hypertension; E89.0 Postprocedural hypothyroidism; E86.9 Volume depletion, unspecified; T42.6X5A Adverse effect of other antiepileptic and sedative-hypnotic drugs, initial encounter; M27.2 Inflammatory conditions of jaws; Z88.2 Allergy status to sulfonamides; Z88.8 Allergy status to other drugs, medicaments and biological substances; Z91.040 Latex allergy status; Z90.49 Acquired absence of other specified parts of digestive tract; Z98.51 Tubal ligation status; Z79.899 Other long term (current) drug therapy; Z79.890 Hormone replacement therapy
CPT/HCPCS: 36415; 80048; 80053; 81003; 82553; 83605; 83880; 83930; 83935; 84300; 84443; 84484; 85025; 87635; 93005; 96361; 96374; J1650; J2405; U0003

== ENCOUNTER → 2020-06-18 | Day surgery (SDC) | payer OTHER ==
[~2020-06-18] MED LIST: Heparin 1,000 UNITS/ML VIAL ONE
--- NOTE | 2020-06-18 12:06 | SPC ---
Ultrasound and Fluoroscopic guided right upper extremity PICC placement HISTORY: Osteomyelitis. Patient needs long-term IV antibiotics FINDINGS: Informed consent obtained prior to the procedure. An appropriate access site was determined with ultrasound guidance. The area was then meticulously pr epped and draped in usual sterile fashion. Skin overlying the right basilic vein anesthetized with 1% buffered lidocaine. Utilizing direct sonog raphic guidance, vascular access is obtained via the right basilic vein, and an 0.018in guidewire was advanced to the distal SVC. Intravascular length is calculated at 35.5 cm, and the PICC is cut ac cordingly. Needle is removed and replaced with a peel-away sheath. The PICC was advanced over the wire. Wire and peel-away sheath were removed. The tip of the catheter overlies the distal SVC. The catheter was accessed and aspirated/flushed easily. Exposure data: 0 minutes of fluoroscopic time 163 mGy centimeter squared FINDINGS: Technically successful placement of a 35.5 centimeter single lumen 5 [place] right upper extremity PIC C line. IMPRESSION: Successful ultrasound guided placement of a right upper extremity PICC.
== END ==
LOC: SPEC 08:07
PROVIDERS: ATTEND Internal Medicine Infectious Disease
PROC: B548ZZA Ultrasonography of Superior Vena Cava, Guidance (ICD-10-PCS; principal; 2020-06-18)
PROC: 02HV33Z Insertion of Infusion Device into Superior Vena Cava, Percutaneous Approach (ICD-10-PCS; principal; 2020-06-18)
DX: M86.9 Osteomyelitis, unspecified (principal); Z88.2 Allergy status to sulfonamides; Z88.8 Allergy status to other drugs, medicaments and biological substances; Z91.040 Latex allergy status; Z91.048 Other nonmedicinal substance allergy status
CPT/HCPCS: 36569; J1644

== ENCOUNTER 2020-10-13 10:58 | Outpatient (CLI) | payer BC ==
--- NOTE | 2020-10-13 12:41 | MMO ---
Bilateral MAMMO Bilat Screen [facility]. CLINICAL HISTORY: Patient is 65 years old and is seen for screening. The patient has the following family history of breast cancer: mother, at age 68. The patient has a history of thyroid cancer. The patient has a history of right Excisional Biopsy - benign. VIEWS: The views performed were: bilateral craniocaudal with tomosynthesis and bilateral mediolateral oblique with tomosynthesis. FILMS COMPARED: The present examination has been compared to prior imaging studies performed at [facility] on 01/02/2018, and at [facility] on 04/08/2014, 07/02/2015 and 07/07/2016. This study has been interpreted with the assistance of computer-aided detection. MAMMOGRAM FINDINGS: The breasts are heterogeneously dense, which could obscure a lesion on mammography. Finding 1: There are stable benign appearing calcifications seen in both breasts. Finding 2: There is a stable nodule with associated biopsy clip seen in the right breast. There are no suspicious masses, suspicious calcifications, or new areas of architectural distortion. IMPRESSION: THERE IS NO MAMMOGRAPHIC EVIDENCE OF MALIGNANCY. A ROUTINE FOLLOW-UP MAMMOGRAM IN 1 YEAR IS RECOMMENDED. THE RESULTS OF THIS EXAM WERE SENT TO THE PATIENT. ACR BI-RADS Category 2 - Benign finding MAMMOGRAPHY NOTE: 1. A negative mammogram report should not delay a biopsy if a dominant of clinically suspicious mass is present. 2. Approximately 10% to 15% of breast cancers are not detected by mammography. 3. Adenosis and dense breasts may obscure an underlying neoplasm. Reported by: NENA AMOS MD Electonically Signed: [id number]
== END 2020-10-13 10:59 | disposition home or self-care (01) ==
LOC: BICMAMMO 10:58
PROVIDERS: ATTEND Internal Medicine
DX: Z12.31 Encounter for screening mammogram for malignant neoplasm of breast (principal); Z91.89 Other specified personal risk factors, not elsewhere classified; Z85.850 Personal history of malignant neoplasm of thyroid; Z80.3 Family history of malignant neoplasm of breast
CPT/HCPCS: 77063; 77067

== ENCOUNTER 2020-11-16 07:57 | Outpatient (CLI) | payer BC | END 2020-11-16 07:58 | disposition home or self-care (01) | LOC: BICULT 07:57 | PROVIDERS: ATTEND Internal Medicine Endocrinology, Diabetes & Metabolism | DX: C73 Malignant neoplasm of thyroid gland (principal); Z90.89 Acquired absence of other organs | CPT/HCPCS: 76536 ==

== ENCOUNTER 2021-11-01 08:25 | Outpatient (CLI) | payer BC | END 2021-11-01 08:26 | disposition home or self-care (01) | LOC: SCSMRI 08:25 | PROVIDERS: ATTEND Ophthalmology | DX: H05.241 Constant exophthalmos, right eye (principal) | CPT/HCPCS: 70553; 82565 ==

== ENCOUNTER 2021-12-12 11:06 | Outpatient (CLI) | payer BC | END 2021-12-12 11:07 | disposition home or self-care (01) | LOC: BICMAMMO 11:06 | PROVIDERS: ATTEND Internal Medicine | DX: Z12.31 Encounter for screening mammogram for malignant neoplasm of breast (principal); Z80.3 Family history of malignant neoplasm of breast; Z85.850 Personal history of malignant neoplasm of thyroid; Z91.89 Other specified personal risk factors, not elsewhere classified | CPT/HCPCS: 77063; 77067 ==

== ENCOUNTER 2023-03-14 10:34 | Outpatient (CLI) | payer MEDICARE, OTHER | END 2023-03-14 10:35 | disposition home or self-care (01) | LOC: BICMAMMO 10:34 | PROVIDERS: ATTEND Internal Medicine | DX: Z12.31 Encounter for screening mammogram for malignant neoplasm of breast (principal); Z91.89 Other specified personal risk factors, not elsewhere classified; Z85.850 Personal history of malignant neoplasm of thyroid; Z80.3 Family history of malignant neoplasm of breast | CPT/HCPCS: 77063; 77067 ==

== ENCOUNTER 2024-03-25 10:35 | Outpatient (CLI) | payer MEDICARE, OTHER | END 2024-03-25 10:36 | disposition home or self-care (01) | LOC: BICMAMMO 10:35 | PROVIDERS: ATTEND Internal Medicine | DX: Z12.31 Encounter for screening mammogram for malignant neoplasm of breast (principal); Z80.3 Family history of malignant neoplasm of breast; Z85.850 Personal history of malignant neoplasm of thyroid; Z91.89 Other specified personal risk factors, not elsewhere classified | CPT/HCPCS: 77063; 77067 ==